=== PATIENT | male | born 1980 | race Two or more races ===

== ENCOUNTER 2023-06-27 22:01 | Emergency (ER) | payer OTHER ==
[2023-06-27 22:18] VITALS: BP 159/102; PULSE 76; RESP 18; TEMP 99.1; BMI 31.4
[2023-06-27] MEDS ORDERED: ACETAMINOPHEN 1000 MG/100 ML BAG IVPB ONE (23:21)
[2023-06-27] MEDS ORDERED: KETOROLAC TROMETHAMINE 15 MG/ML VIAL IVPUSH ONE (23:25)
[2023-06-27] MEDS ORDERED: SODIUM CHLORIDE 0.9% 500 ML INFUS.BAG IV ONE (23:27)
[2023-06-27 23:43] LABS: HEMATOCRIT 40.6 % (35.4-49); HEMOGLOBIN 13.8 GM/dL (11.7-16.9); MCHC 34.1 g/dl (32.0-35.9); MEAN CELL VOLUME 82.1 fl (80-96); MEAN PLT VOLUME 7.2 fl (7.5-11.1); PLATELET COUNT 218 10^3/uL (134-434); RBC 4.94 M/mm3 (4.00-5.60); RDW 13.6 % (11.9-15.9); WHITE BLOOD COUNT 8.2 K/mm3 (4.0-10.0)
[2023-06-27] MEDS ORDERED: KETOROLAC TROMETHAMINE 15 MG/ML VIAL ONE (23:43)
[2023-06-27] MEDS ORDERED: ACETAMINOPHEN INJECTION 100 ML IVPB ONE (23:43)
[2023-06-28 00:09] LABS: EPI CELLS 0 /uL (0-25.1); HYALINE CASTS 0 /uL (0-3.1); PH,URINE 5.5 (5.0-8.0); URINE APPEARANCE CLEAR; URINE BACTERIA 6 /uL (0-1359); URINE BILIRUBIN NEGATIVE (NEGATIVE); URINE COLOR YELLOW; URINE GLUCOSE (UA) NEGATIVE (NEGATIVE); URINE KETONE NEGATIVE (NEGATIVE); URINE LEUK ESTERASE NEGATIVE (NEGATIVE); URINE NITRITE NEGATIVE (NEGATIVE); URINE PROTEIN NEGATIVE (NEGATIVE); URINE RBC 187 /uL (0-23.9); URINE UROBILINOGEN 0.2 mg/dL (0.2-1.0); URINE WBC 8 /uL (0-25.8)
[2023-06-28 00:29] LABS: POTASSIUM 3.8 mmol/L (3.5-5.1)
[2023-06-28 00:31] LABS: CALCIUM 9.3 mg/dL (8.5-10.1)
[2023-06-28 00:32] LABS: ALBUMIN 3.9 g/dl (3.4-5.0); BLOOD UREA NITROGEN 10.4 mg/dL (7-18)
[2023-06-28 00:36] LABS: TOT PROT 7.1 g/dl (6.4-8.2)
[2023-06-28 00:37] LABS: BILIRUBIN,TOTAL 0.3 mg/dL (0.2-1)
[2023-06-28] MEDS ORDERED: TAMSULOSIN HCL 0.4 MG CAP PO ONE (01:57)
[2023-06-28] MEDS ORDERED: TAMSULOSIN HCL 0.4 MG CAP ONE (01:59)
== END 2023-06-28 02:06 | disposition home or self-care (01) ==
LOC: JER 22:01
PROC: 3E033NZ Introduction of Analgesics, Hypnotics, Sedatives into Peripheral Vein, Percutaneous Approach (ICD-10-PCS; principal; 2023-06-27)
PROC: 3E0333Z Introduction of Anti-inflammatory into Peripheral Vein, Percutaneous Approach (ICD-10-PCS; 2023-06-27)
DX: R31.9 Hematuria, unspecified (principal); R10.30 Lower abdominal pain, unspecified; N48.89 Other specified disorders of penis; N20.0 Calculus of kidney
CPT/HCPCS: 36415; 74176-TC; 80053; 81003; 85027; 87086; 99284-25